=== PATIENT | male | born 1970 | race Caucasian/White ===

== ENCOUNTER 2021-01-04 12:07 | Inpatient (IN) | payer OTHER ==
[~2021-01-04] VITALS: Ht 190.5 cm; Wt 114.8 kg
[~2021-01-04 12:07] MED LIST: AMITRIPTYLINE H25 MG PO; BACITRACIN1 EACH TOP; CEPHALEXIN500 MG PO; GLUCOTROL5 MG PO; LYRICA200 MG PO; SULFAMETHOXAZO1 EACH PO; VIBRAMYCIN100 MG PO
[2021-01-04 13:26] LABS: HEMOGLOBIN 14.4 gm/dl (14.0-17.5); RED BLOOD COUNT 4.91 M/UL (4.20-5.50); WHITE BLOOD COUNT 9.5 K/UL (4.5-11.0)
[2021-01-04 13:47] LABS: BUN/CREATININE RATIO 17 (0-10)
[2021-01-04] MEDS ORDERED: BUPROPION HCL200 MG PO (15:24)
[2021-01-04] MEDS ORDERED: MINIPRESS CAP 11 MG PO (15:25)
[2021-01-04] MEDS ORDERED: QUETIAPINE FUM100 MG PO (15:28)
[2021-01-04] MEDS ORDERED: PREGABALIN150 MG PO (15:30)
[2021-01-04] MEDS ORDERED: FOCALIN XR35 MG PO (15:31)
[2021-01-04] MEDS ORDERED: EMTRICITABINE-1 EACH PO (15:32)
[2021-01-04] MEDS ORDERED: VENLAFAXINE HC150 MG PO (15:34)
[2021-01-04] MEDS ORDERED: NOVOLOG 10100 UNITS/ SC (17:24)
[2021-01-04] MEDS ORDERED: TYLENOL EXTRA500 MG PO (17:26)
[2021-01-04] MEDS ORDERED: STOOL SOFTENER100 MG PO (17:26)
[2021-01-04] MEDS ORDERED: IBUPROFEN200 MG PO (17:27)
[2021-01-05 05:29] LABS: HEMOGLOBIN 13.9 gm/dl (14.0-17.5); RED BLOOD COUNT 4.79 M/UL (4.20-5.50); WHITE BLOOD COUNT 8.8 K/UL (4.5-11.0)
[2021-01-05 05:46] LABS: BUN/CREATININE RATIO 16 (0-10)
[2021-01-06 05:37] LABS: HEMOGLOBIN 14.6 gm/dl (14.0-17.5); RED BLOOD COUNT 4.95 M/UL (4.20-5.50); WHITE BLOOD COUNT 9.5 K/UL (4.5-11.0)
[2021-01-06 05:55] LABS: BUN/CREATININE RATIO 13 (0-10)
[2021-01-07 06:58] LABS: HEMOGLOBIN 14.7 gm/dl (14.0-17.5); RED BLOOD COUNT 4.98 M/UL (4.20-5.50); WHITE BLOOD COUNT 9.6 K/UL (4.5-11.0)
[2021-01-07 07:33] LABS: BUN/CREATININE RATIO 14 (0-10)
[2021-01-08 03:28] LABS: HEMOGLOBIN 14.7 gm/dl (14.0-17.5); RED BLOOD COUNT 5.07 M/UL (4.20-5.50); WHITE BLOOD COUNT 10.6 K/UL (4.5-11.0)
[2021-01-08 03:40] LABS: BUN/CREATININE RATIO 11 (0-10)
[2021-01-09 04:57] LABS: HEMOGLOBIN 14.9 gm/dl (14.0-17.5); RED BLOOD COUNT 5.09 M/UL (4.20-5.50); WHITE BLOOD COUNT 13.1 K/UL (4.5-11.0)
[2021-01-10 04:35] LABS: BUN/CREATININE RATIO 13 (0-10)
[2021-01-11 05:14] LABS: BUN/CREATININE RATIO 7 (0-10)
[2021-01-11 05:19] LABS: RED BLOOD COUNT 4.83 M/UL (4.20-5.50)
[2021-01-11 05:26] LABS: WHITE BLOOD COUNT 9.7 K/UL (4.5-11.0)
== END 2021-01-11 17:58 | disposition home or self-care (01) | DRG 629 ==
LOC: ER1 12:07 → CDU 14:55 → M/S 14:55
PROVIDERS: Internal Medicine; Physician Assistant; Physician Assistant Medical; Podiatrist Foot & Ankle Surgery; ADMIT Internal Medicine
PROC: 0HRNXK3 Replacement of Left Foot Skin with Nonautologous Tissue Substitute, Full Thickness, External Approach (ICD-10-PCS; 2021-01-09)
PROC: 0QBR0ZZ Excision of Left Toe Phalanx, Open Approach (ICD-10-PCS; principal; 2021-01-09 13:00)
DX: E11.621 Type 2 diabetes mellitus with foot ulcer (principal); M86.8X7 Other osteomyelitis, ankle and foot; L97.529 Non-pressure chronic ulcer of other part of left foot with unspecified severity; E11.69 Type 2 diabetes mellitus with other specified complication; B95.62 Methicillin resistant Staphylococcus aureus infection as the cause of diseases classified elsewhere; E87.6 Hypokalemia; E11.65 Type 2 diabetes mellitus with hyperglycemia; Z20.822 Contact with and (suspected) exposure to COVID-19; Z98.890 Other specified postprocedural states; Z79.4 Long term (current) use of insulin
CPT/HCPCS: 36415; 73630; 73718; 80048; 80053; 80202; 82962; 83735; 84132; 85025; 85027; 85652; 86140; 87040; 87070; 87077; 87186; 87205; 96374; 96375; 97162; 99284; J1100; J1650; J2250; J2270; J2405; J2543; J2550; J2704; J2795; J3010; J3370; J7070; J7120; Q4133; U0002

== ENCOUNTER → 2021-04-19 | Outpatient (CLI) | payer OTHER ==
[~2021-04-19] MED LIST changes: +BUPROPION HCL200 MG PO; +EMTRICITABINE-1 EACH PO; +FOCALIN XR35 MG PO; +IBUPROFEN200 MG PO; +MINIPRESS CAP 11 MG PO; +NOVOLOG 10100 UNITS/ SC; +PREGABALIN150 MG PO; +QUETIAPINE FUM100 MG PO; +STOOL SOFTENER100 MG PO; +TYLENOL EXTRA500 MG PO; +VENLAFAXINE HC150 MG PO
== END ==
LOC: LAB 08:03
DX: E11.9 Type 2 diabetes mellitus without complications (principal)
CPT/HCPCS: 36415; 82565; 84520

== ENCOUNTER → 2021-04-24 | Outpatient (CLI) | payer OTHER | LOC: MRI 14:00 | DX: H49.22 Sixth [abducent] nerve palsy, left eye (principal) | CPT/HCPCS: 70543; 70553; A9577 ==

== ENCOUNTER 2021-11-17 21:46 | Emergency (ER) | payer OTHER ==
[2021-11-17 22:33] LABS: HEMOGLOBIN 13.7 gm/dl (14.0-17.5); RED BLOOD COUNT 4.57 M/UL (4.20-5.50); WHITE BLOOD COUNT 15.4 K/UL (4.5-11.0)
[2021-11-17 22:50] LABS: BUN/CREATININE RATIO 10 (0-10)
[2021-11-18] MEDS ORDERED: BACTRIM DS TAB1 EACH PO (00:04)
== END 2021-11-18 00:45 | disposition home or self-care (01) ==
LOC: ER1 21:46
PROVIDERS: Family Medicine
DX: U07.1 COVID-19 (principal); L02.416 Cutaneous abscess of left lower limb; E11.9 Type 2 diabetes mellitus without complications; Z79.4 Long term (current) use of insulin; Z87.442 Personal history of urinary calculi
CPT/HCPCS: 10060; 71045; 80053; 81001; 82962; 85025; 85652; 86140; 99283